=== PATIENT | male | born 1980 ===

== ENCOUNTER 2017-05-06 15:11 | Outpatient (CLI) | payer BC | END 2017-05-06 15:12 | disposition home or self-care (01) | LOC: BICMRI 15:11 | PROVIDERS: ATTEND Neurological Surgery | DX: M50.123 Cervical disc disorder at C6-C7 level with radiculopathy (principal); M47.22 Other spondylosis with radiculopathy, cervical region; M99.71 Connective tissue and disc stenosis of intervertebral foramina of cervical region | CPT/HCPCS: 72141 ==